=== PATIENT | female | born 1990 | race Two or more races ===

== ENCOUNTER 2022-04-13 06:18 | Emergency (ER) | payer SELFPAY ==
[~2022-04-13] VITALS: Ht 167.6 cm; Wt 77.1 kg
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
[2022-04-13] MEDS ORDERED: NALO1DIS2 IJ (11:47)
[2022-04-13 12:01] VITALS: BP 115/67
--- NOTE | 2022-04-13 12:01 | NUR ---
Patient discharged to home in stable condition. Written and verbal after care instructions given. Patient verbalizes understanding of instruction.
--- NOTE | 2022-04-13 15:52 | NUR ---
FLO attempted to see pt. and she was not interviewable. By the time FLO attempted to interview pt., she was discharged from hospital.
== END 2022-04-13 12:01 | disposition home or self-care (01) ==
LOC: ER 06:20
DX: T40.411A Poisoning by fentanyl or fentanyl analogs, accidental (unintentional), initial encounter (principal); F17.200 Nicotine dependence, unspecified, uncomplicated; Z60.2 Problems related to living alone; Y92.89 Other specified places as the place of occurrence of the external cause